=== PATIENT | male | born 1995 | race Caucasian/White ===

== ENCOUNTER 2019-07-17 01:28 | Observation (INO) ==
[2019-07-17 02:06] LABS: Basophils # (auto) 0.02 K/uL (0-0.2); Basophils % (auto) 0.3 %; Eosinophils # (auto) 0.11 K/uL (0-0.5); Eosinophils % (auto) 1.6 %; Hematocrit (blood only) 41.1 % (42-52); Hemoglobin 14.7 g/dL (14.0-18.0); Immature Granulocytes # (auto) 0.01 K/uL (0.00-0.02); Immature Granulocytes % (auto) 0.1 %; Lymphocytes # (auto) 2.34 K/uL (1.2-3.4); Lymphocytes % (auto) 33.2 %; Mean Corpuscular Hgb Conc 35.8 g/dL (32-36); Mean Platelet Volume 9.6 fL (7.4-10.4); Monocytes # (auto) 0.52 K/uL (0.11-0.59); Monocytes % (auto) 7.4 %; Neutrophils # (auto) 4.04 K/uL (1.4-6.5); Neutrophils % (auto) 57.4 %; Platelet Count 143 K/uL (130-400); RDW Coefficient of Variation 12.6 % (11.5-14.5); RDW Standard Deviation 37.9 fL (36.4-46.3); Red Blood Count 4.95 M/uL (4.7-6.1); White Blood Count 7.04 K/uL (4.8-10.8)
[2019-07-17 02:10] LABS: Appearance Urine Cloudy (Clear); Bacteria Urine Automated Negative (Negative); Bilirubin Urine Negative (Negative); Blood Urine Negative (Negative); Cast Urine Automated 0 /lpf (0-5); Color Urine Yellow; Epithelial Cell Urine Auto 0-5 /lpf (0-5); Glucose Urine UA Negative (Negative); Ketones Urine Negative (Negative); Leukocyte Esterase Urine Negative (Negative); Nitrite Urine Negative (Negative); Protein Urine Negative (Negative); RBC Urine Automated 0-4 /hpf (0-4); Urobilinogen Urine Negative (Negative); WBC Urine Automated 0 /hpf (0-5); pH Urine 7.5 (4.5-7.5)
[2019-07-17 02:22] LABS: Albumin Level 4.7 gm/dl (3.4-5.0); BUN Creatinine Ratio 12.7 (10-20); Calcium 8.9 mg/dl (8.5-10.1); Creatinine Clr Calc Pharmacy 103.5 ml/min; Est GFR (African American) 107.5; Est GFR (Non-African American) 92.7; Potassium 3.8 mmol/L (3.5-5.1)
[2019-07-17] MEDS ORDERED: ONDANSETRON INJ 2 MG/ML 2 ML VIAL IV STA ×2 (02:22→03:53)
[2019-07-17] MEDS ORDERED: MoRPHine SULFATE 10 MG/ML CARP/VIAL IV STA (02:22)
[2019-07-17 02:25] LABS: Albumin Globulin Ratio 1.5 (0.9-2); Bilirubin,Total 0.8 mg/dl (0.2-1); Globulin 3.2 gm/dl (2.5-4.0); Total Protein 7.9 gm/dl (6.4-8.2)
[2019-07-17 02:45] LABS: Amphetamines+Metham, Urine Neg (Neg); Barbiturates, Urine Neg (Neg); Benzodiazepine, Urine Neg (Neg); Cocaine, Urine Neg (Neg); MDMA (Ecstacy), Urine Neg (Neg); Methadone, Urine Neg (Neg); Opiate, Urine Neg (Neg); Phencyclidine, Urine Neg (Neg)
[2019-07-17] MEDS ORDERED: IOVERSOL 100ml IV PRN (03:04)
[2019-07-17] MEDS ORDERED: MoRPHine SULFATE 4 MG/ML 1 ML CARP\\VIAL IV STA (03:40)
[2019-07-17] MEDS ORDERED: ACETAMINOPHEN 1,000 MG/100 ML VIAL IV PRN (05:16)
[2019-07-17] MEDS ORDERED: ONDANSETRON INJ 2 MG/ML 2 ML VIAL IV PRN ×2 (05:16→08:14)
[2019-07-17] MEDS ORDERED: DiphenhydrAMINE HCL 50 MG/ML VIAL IV PRN (05:16)
[2019-07-17] MEDS ORDERED: MoRPHine SULFATE 2 MG/ML CARP IV PRN (05:16)
[2019-07-17] MEDS ORDERED: MoRPHine SULFATE 4 MG/ML 1 ML CARP\\VIAL IV PRN ×2 (05:16→11:43)
[2019-07-17] MEDS: LACTATED RINGER'S 1,000 ML IV SCH ×2 (05:44→13:28)
[2019-07-17] MEDS: cefOXitin 2,000 MG in DEXTROSE 5% 50 ML IV SCH ×2 (06:09→12:00)
--- NOTE | 2019-07-17 06:57 | History & Physical Bridge Note ---
Date of Service July 17, 2019 History & Physical Bridge Note I have examined the patient, reviewed the History & Physical and in the interval since the performance of the History & Physical I have noted the following changes of clinical significance: no changes noted
--- NOTE | 2019-07-17 07:09 | Emergency Department Note ---
History of Present Illness General Chief complaint: Abdominal Pain Stated complaint: STOMACH PAIN Time Seen by Provider: 07/17/19 01:56 History of Present Illness Maximum Pain Intensity: 8 This is a 24-year-old male presenting to the emergency department for evaluation of generalized abdominal pain that began around his bellybutton around 9 PM, roughly 4-1/2 hours ago. The patient states that around 11 PM the pain intensified and has now settled in the right lower quadrant. The patient has not had fevers or chills. No chest pain, chest tightness, or shortness of breath. His last meal was around 10 PM, and this did not improve his symptoms. He does not have a history of chronic medical disease or surgery. His discomfort is currently rated an 8/10 Home Medications Home Medications Medication Instructions Recorded Confirmed Type No Known Home Medications 07/17/19 07/17/19 History Allergies Allergy/AdvReac Type Severity Reaction Status Date / Time No Known Allergies Allergy Verified 07/17/19 01:47 Past Med/Surg History Medical History No chronic diseases present No significant past surgical history Social History Preferred Language: Maldivian Communication Ability: Effective Drop Count Associate Required: No Beliefs That Will Affect Care: None Current Living Situation: Other Current Living Situation Comment: 6 roommates Other Information That Helps Us Care for You: No Feels Safe at Home: Yes Safety Concerns: Feels Safe At This Time Smoking Status: Never smoker Hx Alcohol Use: Yes Alcohol type: beer Hx Substance Use: Yes substance use type: marijuana Last Used Substance: Days (ago) Last Used Substance Other:: 07/17/19 Review of Systems A total of 10 systems reviewed and were otherwise negative Physical Exam Vital Signs Vital Signs - 24 hr 07/17/19 01:35 07/17/19 02:46 07/17/19 02:48 Temperature 36.9 C Temperature Source Oral Sepsis Recent Fever Within 48 Hours No Sepsis New/Unexplained Change in Mental Status No Sepsis Action Taken by Nursing No Action Required Pulse Rate 86 67 58 L Pulse Rate from SpO2 Sensor 66 59 L Respiratory Rate 20 19 15 Blood Pressure 151/97 H 133/90 Blood Pressure Mean 115 104 Pulse Oximetry 97 100 100 Oxygen Delivery Method Room Air 07/17/19 03:00 Temperature Temperature Source Sepsis Recent Fever Within 48 Hours Sepsis New/Unexplained Change in Mental Status Sepsis Action Taken by Nursing Pulse Rate 60 Pulse Rate from SpO2 Sensor 59 L Respiratory Rate 18 Blood Pressure Blood Pressure Mean Pulse Oximetry 97 Oxygen Delivery Method VITALS: Vitals are noted on the nurse's note and reviewed by myself. Vital signs stable. GENERAL: Well-developed, well-nourished, white male who appears in significant discomfort. He is guarding his abdomen and pacing in his ER room. HEART: Regular rate and rhythm without murmurs gallops or rubs. LUNGS: Clear to auscultation bilaterally without wheezes, rales or rhonchi. No retractions or accessory muscle use. ABDOMEN: Positive normal bowel sounds x 4. Soft with mild diffuse tenderness, with distinct right lower quadrant tenderness. There is some guarding in this area. No CVA tenderness. MUSCULOSKELETAL: No muscle atrophy, erythema, or edema noted. Full range of motion in all extremities. NEURO: Patient was alert and oriented to person place and time. CN II through XII grossly intact. SKIN: The skin was without rashes, erythema, edema, or bruising. Capillary refill less than 2 seconds. Course Administered Medications Cefoxitin Sodium 2,000 mg/ (Dextrose) 60 mls @ 100 mls/hr IV Q6H [facility] Stop: 07/27/19 05:59 Last Admin: 07/17/19 06:09 Dose: 100 mls/hr Documented by: [id number] Lactated Ringer's (Lr) 1,000 mls @ 125 mls/hr IV .Q8H CARIDAD Stop: 08/16/19 05:15 Last Admin: 07/17/19 05:44 Dose: 125 mls/hr Documented by: [id number] Ondansetron HCl (Zofran) 4 mg IV Q4H PRN PRN Reason: Nausea And Vomiting Stop: 08/16/19 05:15 Last Admin: 07/17/19 06:25 Dose: 4 mg Documented by: [id number] Discontinued Medications Ioversol (Optiray 320 100ml) 100 ml IV ONCE PRN PRN Reason: Interaction Checking Stop: 07/21/19 03:03 Last Admin: 07/17/19 03:05 Dose: 93 ml Documented by: [id number] Morphine Sulfate (Morphine Sulfate) 6 mg IV NOW STA Stop: 07/17/19 02:23 Last Admin: 07/17/19 02:32 Dose: 6 mg Documented by: [id number] Morphine Sulfate (Morphine Sulfate) 4 mg IV NOW STA Stop: 07/17/19 03:41 Last Admin: 07/17/19 03:52 Dose: 4 mg Documented by: [id number] Ondansetron HCl (Zofran) 4 mg IV NOW STA Stop: 07/17/19 02:23 Last Admin: 07/17/19 02:32 Dose: 4 mg Documented by: [id number] Ondansetron HCl (Zofran) 4 mg IV NOW STA Stop: 07/17/19 03:54 Last Admin: 07/17/19 03:56 Dose: 4 mg Documented by: [id number] Medical Decision Making Differential Diagnosis Differential diagnosis: Etiologies such as biliary colic, cholecystitis, hepatitis, pancreatitis, cardiac disease, pancreatitis, gastritis, peptic ulcer disease, appendicitis, cystitis, diverticulitis, mesenteric ischemia, inflammatory bowel disease, ileus, bowel obstruction, testicular/adnexal torsion, aortic pathology, shingles, as well as others were considered Laboratory Data Result diagrams: 07/17/19 01:57 07/17/19 01:57 Lab Results 07/17/19 07/17/19 07/17/19 Range/Units 01:04 01:54 01:57 WBC 7.04 (4.8-10.8) K/uL RBC 4.95 (4.7-6.1) M/uL Hgb 14.7 (14.0-18.0) g/dL Hct 41.1 L (42-52) % MCV 83.0 (80-100) fL MCH 29.7 (25-34) pg MCHC 35.8 (32-36) g/dL RDW Std Deviation 37.9 (36.4-46.3) fL RDW Coeff of Melina 12.6 (11.5-14.5) % Plt Count 143 (130-400) K/uL MPV 9.6 (7.4-10.4) fL Immature Gran % (Auto) 0.1 % Neut % (Auto) 57.4 % Lymph % (Auto) 33.2 % Merrick % (Auto) 7.4 % Eos % (Auto) 1.6 % Baso % (Auto) 0.3 % Immature Gran # (Auto) 0.01 (0.00-0.02) K/uL Neut # (Auto) 4.04 (1.4-6.5) K/uL Lymph # (Auto) 2.34 (1.2-3.4) K/uL Merrick # (Auto) 0.52 (0.11-0.59) K/uL Eos # (Auto) 0.11 (0-0.5) K/uL Baso # (Auto) 0.02 (0-0.2) K/uL Sodium (136-145) mmol/L Potassium (3.5-5.1) mmol/L Chloride (98-107) mmol/L Carbon Dioxide (21-32) mmol/L Anion Gap (3-11) BUN (7-18) mg/dl Creatinine (0.6-1.4) mg/dl Est Cr Clr Drug Dosing ml/min Est GFR ( Amer) Est GFR (Non-Af Amer) BUN/Creatinine Ratio (10-20) Glucose (70-99) mg/dl Calcium (8.5-10.1) mg/dl Total Bilirubin (0.2-1) mg/dl AST (15-37) U/L ALT (12-78) U/L Alkaline Phosphatase (45-117) U/L Total Protein (6.4-8.2) gm/dl Albumin (3.4-5.0) gm/dl Globulin (2.5-4.0) gm/dl Albumin/Globulin Ratio (0.9-2) Lipase (73-393) U/L Urine Color Yellow Urine Appearance Cloudy A (Clear) Urine pH 7.5 (4.5-7.5) Ur Specific [place] 1.010 (1.000-1.030) Urine Protein Negative (Negative) Urine Glucose (UA) Negative (Negative) Urine Ketones Negative (Negative) Urine Blood Negative (Negative) Urine Nitrite Negative (Negative) Urine Bilirubin Negative (Negative) Urine Urobilinogen Negative (Negative) Ur Leukocyte Esterase Negative (Negative) Urine WBC (Auto) 0 (0-5) /hpf Urine RBC (Auto) 0-4 (0-4) /hpf U Hyaline Cast (Auto) 0 (0-5) /lpf U Epithel Cells (Auto) 0-5 (0-5) /lpf Urine Bacteria (Auto) Negative (Negative) Urine Opiates Screen Neg (Neg) Ur Methadone, Qual Neg (Neg) Urine Barbiturates Neg (Neg) Ur Phencyclidine (PCP) Neg (Neg) U Amphetamin/Meth Scrn Neg (Neg) MDMA (Ecstasy) Screen Neg (Neg) U Benzodiazepines Scrn Neg (Neg) Ur Cocaine Metabolite Neg (Neg) U Marijuana (THC) Screen Neg (Neg) 07/17/19 Range/Units 01:57 WBC (4.8-10.8) K/uL RBC (4.7-6.1) M/uL Hgb (14.0-18.0) g/dL Hct (42-52) % MCV (80-100) fL MCH (25-34) pg MCHC (32-36) g/dL RDW Std Deviation (36.4-46.3) fL RDW Coeff of Melina (11.5-14.5) % Plt Count (130-400) K/uL MPV (7.4-10.4) fL Immature Gran % (Auto) % Neut % (Auto) % Lymph % (Auto) % [place] % (Auto) % Eos % (Auto) % Baso % (Auto) % Immature Gran # (Auto) (0.00-0.02) K/uL Neut # (Auto) (1.4-6.5) K/uL Lymph # (Auto) (1.2-3.4) K/uL Merrick # (Auto) (0.11-0.59) K/uL Eos # (Auto) (0-0.5) K/uL Baso # (Auto) (0-0.2) K/uL Sodium 140 (136-145) mmol/L Potassium 3.8 (3.5-5.1) mmol/L Chloride 104 (98-107) mmol/L Carbon Dioxide 31 (21-32) mmol/L Anion Gap 5.0 (3-11) BUN 14 (7-18) mg/dl Creatinine 1.12 (0.6-1.4) mg/dl Est Cr Clr Drug Dosing 103.5 ml/min Est GFR ( Amer) 107.5 Est GFR (Non-Af Amer) 92.7 BUN/Creatinine Ratio 12.7 (10-20) Glucose 106 H (70-99) mg/dl Calcium 8.9 (8.5-10.1) mg/dl Total Bilirubin 0.8 (0.2-1) mg/dl AST 19 (15-37) U/L ALT 24 (12-78) U/L Alkaline Phosphatase 68 (45-117) U/L Total Protein 7.9 (6.4-8.2) gm/dl Albumin 4.7 (3.4-5.0) gm/dl Globulin 3.2 (2.5-4.0) gm/dl Albumin/Globulin Ratio 1.5 (0.9-2) Lipase 83 (73-393) U/L Urine Color Urine Appearance (Clear) Urine pH (4.5-7.5) Ur Specific [place] (1.000-1.030) Urine Protein (Negative) Urine Glucose (UA) (Negative) Urine Ketones (Negative) Urine Blood (Negative) Urine Nitrite (Negative) Urine Bilirubin (Negative) Urine Urobilinogen (Negative) Ur Leukocyte Esterase (Negative) Urine WBC (Auto) (0-5) /hpf Urine RBC (Auto) (0-4) /hpf U Hyaline Cast (Auto) (0-5) /lpf U Epithel Cells (Auto) (0-5) /lpf Urine Bacteria (Auto) (Negative) Urine Opiates Screen (Neg) Ur Methadone, Qual (Neg) Urine Barbiturates (Neg) Ur Phencyclidine (PCP) (Neg) U Amphetamin/Meth Scrn (Neg) MDMA (Ecstasy) Screen (Neg) U Benzodiazepines Scrn (Neg) Ur Cocaine Metabolite (Neg) U Marijuana (THC) Screen (Neg) Imaging Data Radiologist's Impression: Preliminary Findings Only See Final Report For Complete Findings CT ABDOMEN & PELVIS With Contrast: No comparisons The appendix is visualized within the right pelvis. There are 2 intraluminal calcifications, compatible with appendicolith. The appendix is distended up to a maximum of 11 mm. There is minimal periappendiceal fat stranding. In the appropriate clinical setting, these findings would be consistent with early, acute appendicitis. There is no periappendiceal abscess or extraluminal gas Unremarkable small and large bowel. No acute inflammatory process or o bstruction. Trace free fluid within the pelvis. No pelvic abscess. Grade 1 L5-S1 spondylolisthesis with bilateral L5 pars defects. No acute osseous abnormalities MDM Narrative Physical exam and history were performed. Nursing notes, EMR, and Medication List were personally reviewed. Patient appears to have generalized abdominal pain that has settled in the right lower quadrant. The patient appears markedly uncomfortable on my presentation to the room. IV access was established and labs were obtained. The patient was hydrated with normal saline and given 6 mg IV morphine and [address] scan was performed. The patient's blood work is as above and was reviewed. He does not have a significantly elevated white blood cell count, gross anemia, bandemia, or significant electrolyte imbalance. Lipase and transaminases are not diagnostic. Urine is without evidence of infection. It is negative for drugs of abuse. CT scan was reviewed by myself and radiology and shows signs consistent with an acute early appendicitis. I discussed the case with the on-call surgeon, Dr. Le, who will arrange surgical intervention. I did additionally have a lengthy discussion with the patient's mother, and kept her updated throughout her son's stay. The family evidently lives in [place] and will be coming to the [facility] this morning. The patient voiced understanding of his findings and is is comfortable with surgery. Please see Dr. Le dictation for further patient course, plan, and disposition. The chart was completed utilizing [employer] Speech Voice Recognition Software. Grammatical errors, random word insertions, pronoun errors, and incomplete sentences are an occasional consequence of this system due to software limitations, ambient noise, and hardware issues. Any formal questions or concerns about the content, text, or information contained within the body of this dictation should be directly addressed to the provider for clarification. . Impression & Plan Acute appendicitis Discharge Plan Visit Data *Final* Discharge Date/Time: 07/17/19 05:05 Chief Complaint: Abdominal Pain Stated Complaint: STOMACH PAIN ED Provider: Starr Li ED Midlevel Provider: Jackson Ramachandran Discharge Problem: Acute appendicitis Patient Disposition: Admitted As Inpatient Discharge Instructions Interventions: ED Discharge Assessment Last Done: 07/17/19 05:05
--- NOTE | 2019-07-17 07:39 | Surgery Consultation ---
Date of Consultation July 17, 2019 Assessment & Plan (1) Acute appendicitis: This is a 24yM with no PMH who presents to the [facility] with complaints of abdominal pain and CT scan findings concerning for early acute appendicitis. Patient will be admitted under general surgery. Will keep NPO with IVF, IV abx, and prn pain medication. Will book patient for the OR today for laparoscopic appendectomy with Dr. Le. Supervising Physician Co-Signing Physician Notes Patient seen and examined, labs and imaging reviewed, agree with above. 24-year-old male with periumbilical pain that migrated to the right lower dorcas drant yesterday. Afebrile, vital signs stable, normal white count. On exam he is tender to palpation with guarding in the right lower quadrant at McBurney's point. CT scan shows a dilated appendix. Acute appendicitis Plan for laparoscopic appendectomy The risks the procedure were discussed to include but not limited to bleeding, infection, open surgery, damage to surrounding structures, need for future or more extensive surgery, normal appendix, abscess, and the risk of anesthesia Plan of care discussed the patient, all questions were answered, the patient expressed understanding agrees the plan of care as stated History of Present Illness Attending Physician: Cristóbal Le, DO, FACS History of Present Illness This is a 24yM with no significant PMH who presented to the [facility] ED in the early AM of 07/17/19 with severe abdominal pain. Patient states that his pain started around 9pm last evening that progressively worsened throughout the night prompting him to be evaluated in the ED. The pain was at first generalized in his central abdomen that migrated to the right lower quadrant. He tried to eat around 10pm thinking he was hungry after soccer practice, but that did not help his pain. He endorses vomiting once this morning around 6am, but otherwise d enies nausea. He denies fevers/chills, diarrhea or change in bowel habits, chest pain, shortness of breath, or abdominal bloating. In the ED workup included a CT scan of the abdomen that revealed a dilated appendix to 11mm, minimal periappendiceal fat stranding, concerning for early acute appendicitis. WBC 7.4 and patient afebrile. Allergies Allergy/AdvReac Type Severity Reaction Status Date / Time No Known Allergies Allergy Verified 07/17/19 01:47 Home Medications Home Medications Medication Instructions Recorded Confirmed Type No Known Home Medications 07/17/19 07/17/19 History Patient History Medical History No chronic diseases present No significant past surgical history Social History Preferred Language: Thai Communication Ability: Effective Engineering Aide Required: No Beliefs That Will Affect Care: None Current Living Situation: Other Current Living Situation Comment: 6 roommates Other Information That Helps Us Care for You: No Feels Safe at Home: Yes Safety Concerns: Feels Safe At This Time Smoking Status: Never smoker Hx Alcohol Use: Yes Alcohol type: beer Hx Substance Use: Yes substance use type: marijuana Last Used Substance: Days (ago) Last Used Substance Other:: 07/17/19 Review of Systems Constitutional: no fever and no chills Cardiovascular: no chest pain Gastrointestinal: + abdominal pain (right lower quadrant) and + vomiting (x1); no bloating, no nausea and no change in bowel habits Genitourinary: no dysuria Physical Exam Physical Exam: awake/alert Constitutional: well developed and well nourished; no acute distress Respiratory: normal respiratory effort; no respiratory distress Cardiovascular: Rate/Rhythm: regular rate Gastrointestinal (Abdomen): Inspection/Auscultation: abdomen normal to inspection and + abdomen distended (minimally) Percussion/Palpation: + abdomen tender (to deep palpation in RLQ) and abdomen soft Results & Data Vital Signs (Past 12 Hours) Vital Signs Temp Pulse Pulse Resp BP BP Pulse Ox 07/17/19 05:19 36.9 C 68 18 147/71 H 100 07/17/19 05:05 62 19 133/90 96 07/17/19 03:00 60 18 97 07/17/19 02:48 58 L 15 100 07/17/19 02:46 67 19 133/90 100 07/17/19 01:35 36.9 C 86 20 151/[address] abdomen Pelvis (07/17/19): Night hawk read The appendix is visualized within the pelvis. There are 2 intraluminal calcifications, compatible with appendicolith. The appendix is distended up to a maximum of 11mm. There is minimal periappendiceal fat stranding. In the appropriate clinical setting, these findings would be consistent with early, acute appendicitis. There is no periappendiceal abscess or . Unremarkable small and large bowel. No acute inflammatory process or obstruction. Trace free fluid within the pelvis. No pelvic abscess. Grade 1 L5-S1 spondylolithesis with bilateral L5 pars defects. No acute osseous abnormalities. Read by: Bigg Valadez MD PG Care Time/CCT Total # of Minutes Spent Total Time Spent with Patient: Total time spent is greater than 50% in coordination of care (as documented) at patient's floor/unit and/or counseling patient: (1) Acute appendicitis Appendicitis abscess presence: without abscess Appendicitis gangrene presence: without gangrene Appendicitis perforation presence: without perforation
--- NOTE | 2019-07-17 07:56 | CT Scan Report ---
CT SCAN OF THE ABDOMEN AND PELVIS WITH IV CONTRAST CLINICAL HISTORY: Generalized abdominal pain. Nausea. COMPARISON STUDY: No priors. TECHNIQUE: Following the IV administration of 93 cc of Optiray 320, CT scan of the abdomen and pelvi s is performed from the lung bases to the proximal femora. Images are reviewed in the axial, sagittal , and coronal planes. IV contrast was administered without complication. A dose lowering technique wa s utilized adhering to the principles of ALARA. CT DOSE: 296.01 mGy.cm FINDINGS: Lung bases: The heart is normal in size and without pericardial effusion. The lung bases are clear. Liver: The contrast-enhanced liver is normal in size, contour, and attenuation. There is no intrahepa tic biliary ductal dilatation. The hepatic veins and portal veins are patent. Gallbladder: Unremarkable. Spleen: Normal in size and attenuation. Pancreas: Unremarkable. Adrenal glands: Unremarkable. Kidneys: The contrast enhanced kidneys are normal in size and without hydronephrosis. The kidneys enh ance symmetrically. Abdominal vasculature: The abdominal aorta is normal in course and caliber. Bowel: There is no bowel obstruction. The appendix is distended and fluid-filled measuring up to 10 mm in diameter. There are numerous calcified appendicoliths identified, as well as faint periappendic eal stranding. Findings are highly concerning for acute appendicitis. There is no evidence of abscess . Peritoneum: There is no intraperitoneal free air or abdominal ascites. There is a small fat-containin g umbilical hernia. Lymphadenopathy: None. Pelvic viscera: The bladder, prostate, and seminal vesicles are normal as imaged. Skeletal structures: There are bilateral pars defects at L5 with mild disc space narrowing at L5-S1. No anterolisthesis is seen. No lytic or blastic lesions are seen. IMPRESSION: Findings consistent with mild acute appendicitis. There is no evidence of abscess or perf oration. Electronically signed by: Saul Arnold M.D. 07/17/2019 7:23 AM
--- NOTE | 2019-07-17 08:04 | Anesthesiology Consultation ---
Date of Service July 17, 2019 Assessment & Plan (1) Encounter for pre-operative examination: Chart Review Chart Review: Acceptable Risk for Surgery and Patient NOT seen in Pre Admission Testing Consults Requested none History Surgery Operation Date: 07/17/19 09:50 Proposed Procedures p Laparoscopic Appendectomy - Cristóbal Le DO, FACS Height/Weight Height: 5 ft 9 in Weight: 70.5 kg Allergies Allergy/AdvReac Type Severity Reaction Status Date / Time No Known Allergies Allergy Verified 07/17/19 01:47 Medications Home Medications Medication Instructions Recorded Confirmed Last Taken No Known Home Medications 07/17/19 07/17/19 Unknown Active Medications Generic Name Dose Route Start Last Admin Trade Name Freq PRN Reason Stop Dose Admin Cefoxitin Sodium 2,000 mg/ 60 mls @ 100 mls/hr 07/17/19 06:00 07/17/19 06:48 Dextrose IV 07/27/19 05:59 Infused Q6H CARIDAD Infusion Lactated Ringer's 1,000 mls @ 125 mls/hr 07/17/19 05:16 07/17/19 05:44 Lr IV 08/16/19 05:15 125 mls/hr .Q8H CARIDAD Administration Ondansetron HCl 4 mg 07/17/19 05:16 07/17/19 06:25 Zofran IV 08/16/19 05:15 4 mg Q4H PRN Administration Nausea And Vomiting NPO Date Last Intake of Fluids: 07/16/19 Time Last Intake of Fluids: 22:00 Past Medical History Medical History No chronic diseases present No significant past surgical history Social History Smoking Status: Never smoker Hx Alcohol Use: Yes Alcohol type: beer alcohol intake frequency: a few times a week Alcohol Intake Frequency Comment: 15 beers on weekends Hx Substance Use: Yes substance use type: marijuana Last Used Substance: Days (ago) Last Used Substance Other:: 07/17/19 Physical Exam Vital Signs Last Vital Signs Temp 37.0 C 07/17/19 07:35 Pulse 73 07/17/19 07:35 Resp 17 07/17/19 07:35 BP 121/71 07/17/19 07:35 Pulse Ox 99 07/17/19 07:35 Testing Laboratory Results 07/17/19 01:57 07/17/19 01:57 Urine Color Yellow 07/17/19 01:04 Urine Appearance Cloudy (Clear) A 07/17/19 01:04 Urine pH 7.5 (4.5-7.5) 07/17/19 01:04 Ur Specific [place] 1.010 (1.000-1.030) 07/17/19 01:04 Urine Protein Negative (Negative) 07/17/19 01:04 Urine Glucose (UA) Negative (Negative) 07/17/19 01:04 Urine Ketones Negative (Negative) 07/17/19 01:04 Urine Nitrite Negative (Negative) 07/17/19 01:04 Ur Leukocyte Esterase Negative (Negative) 07/17/19 01:04 Urine WBC (Auto) 0 /hpf (0-5) 07/17/19 01:04 Urine RBC (Auto) 0-4 /hpf (0-4) 07/17/19 01:04 U Hyaline Cast (Auto) 0 /lpf (0-5) 07/17/19 01:04 U Epithel Cells (Auto) 0-5 /lpf (0-5) 07/17/19 01:04 Urine Bacteria (Auto) Negative (Negative) 07/17/19 01:04
[2019-07-17] MEDS ORDERED: LIDOCAINE HCL 2% 2 ML VIAL/AMP(20MG/ML) INFIL ONE (08:09)
[2019-07-17] MEDS ORDERED: PROPOFOL IV EMULSION 10 MG/ML 20 ML VIAL IV ONE (08:10)
[2019-07-17] MEDS ORDERED: DEXAMETHASONE SOD INJ 4 MG/ML VIAL ONE ×2 (08:10→09:36)
[2019-07-17] MEDS ORDERED: fentaNYL citrate 100 MCG/2 ML VIAL ONE ×2 (08:10→09:37)
[2019-07-17] MEDS ORDERED: ONDANSETRON INJ 2 MG/ML 2 ML VIAL ONE ×2 (08:10→09:36)
[2019-07-17] MEDS ORDERED: MIDAZOLAM HCL 1 MG/ML 2ML VIAL ONE (08:10)
[2019-07-17] MEDS ORDERED: ePHEDrine sulfate 50 MG/ML AMP IV PRN (08:14)
[2019-07-17] MEDS ORDERED: NALOXONE HCL 0.4 MG/1 ML VIAL/CARP IV PRN (08:14)
[2019-07-17] MEDS ORDERED: PROMETHAZINE HCL 12.5 MG in SODIUM CHLORIDE 0.9% 50 ML IV PRN (08:14)
[2019-07-17] MEDS ORDERED: FLUMAZENIL 0.1 MG/1 ML 10 ML VIAL IV PRN (08:14)
[2019-07-17] MEDS ORDERED: HYDROmorphone INJ 1 MG/ML SYRINGE IV PRN (08:14)
[2019-07-17] MEDS ORDERED: ATROPINE SULFATE 0.1 MG/ML 10ML SYR IV PRN (08:14)
[2019-07-17] MEDS ORDERED: ROCURONIUM BROMIDE 10 MG/ML 5 ML VIAL ONE (08:42)
[2019-07-17] MEDS ORDERED: BUPIVACAINE 0.5 % 5 MG/1 ML MPF 30ML VIAL ONE (09:31)
--- NOTE | 2019-07-17 10:30 | Operative Report ---
Post Operative Report Pre & Post Diagnosis Operation Date: 07/17/19 09:50 Pre-Op Diagnosis: APPENDICITIS Post-Op Diagnosis: APPENDICITIS Procedure Operation Date: 07/17/19 09:50 Actual Procedures p Laparoscopic Appendectomy(Not Applicable) - Cristóbal Le DO, MARK ANTHONY Surgeon Cristóbal Le DO, MARK ANTHONY Manufacturing Electrician Hellen Cantu Estimated Blood Loss 3 Findings Consistent with Post-Op Diagnosis Acute, nonperforated appendicitis Specimens Appendix Anesthesia Type General Complications none Disposition Accompanied Patient To Recovery: No Disposition: Recovery Room Indications 24-year-old male presented to the emergency department with periumbilical pain that migrated to his right lower quadrant. History, physical exam, and imaging studies were consistent with acute appendicitis. Plan for laparoscopic appendectomy. The risks of the procedure were discussed, all questions were answered, and the patient agreed to proceed with surgery as planned. Description of Procedure The patient was properly identified, consented, and taken to the operating room where he was placed in the supine position. General endotracheal anesthesia was induced. SCDs and a safety belt were placed. Preoperative antibiotics were administered. A Santana catheter was placed. The patient's abdomen was prepped and draped in the standard sterile fashion. Surgical timeout was performed and all parties were in agreement that this was the correct patient and procedure to be performed and we continued as planned. A curvilinear infraumbilical incision was made with electrocautery and deepened down to the fascia with blunt dissection. The base of the umbilicus was grasped with a Jose and elevated towards the ceiling. An incision was made in the midline fascia with a knife and entry into the peritoneum was confirmed. Stay suture of 0 Vicryl was placed and a Cole trocar was inserted. The abdomen was insufflated with carbon dioxide which the patient tolerated without incident. The laparoscope was inserted and no damage from initial trocar placement was noted, no gross abnormalities were noted within the 4 quadrants the abdomen. 5 mm ports were then placed in the left lower quadrant with care not to damage the epigastric vessels, and in the suprapubic midline with care not to damage the bladder. The patient was placed in Trendelenburg position and rotated towards the left. The small bowel was swept away from the right lower quadrant. The cecum was grasped with an atraumatic grasper exposing the appendix. The appendix was mildly inflamed and there was no evidence of perforation. There was a small amount of turbid fluid in the pelvis. A window was created between the base of the appendix and the mesoappendix. A jameson loaded endoscopic stapler was then used to divide the appendix at its base. A jameson load was then used to divide the mesoappendix. Hemostasis was good. The appendix was placed in an Endo Catch bag and removed through the umbilical port site. The right lower quadrant and pelvis was irrigated and hemostasis was found to be good. 5 mm trochars were removed under direct visualization and the abdomen was allowed to collapse. The umbilical port site fascia was closed with 0 Vicryl suture. The wound was irrigated, and the skin of all ports was closed with 4-0 Monocryl subcuticular sutures. Dermabond was placed over the wounds. The patient was extubated in the operating room and taken to the PACU where he recovered without apparent incident. All sponge, instrument and needle counts were correct at the conclusion of the procedure. The patient tolerated the procedure well. The physician's mortgage assistant was present and scrubbed for the entire to the case. She was critical in positioning the patient, prepping and draping, driving the laparoscope, retraction exposure, closure the incisions, and placement of the dressings. I attest to the content of the Intraoperative Record and any orders documented therein. Any exceptions are noted below.
--- NOTE | 2019-07-17 11:10 | Anesthesiology Progress Note ---
Date of Service July 17, 2019 Anesthesia Post Procedure Vital Signs Vital Signs: Temp Pulse Pulse Pulse Resp BP BP 07/17/19 11:05 36.8 C 68 15 122/63 07/17/19 10:55 36.8 C 55 L 18 110/52 L 07/17/19 10:45 36.8 C 60 17 117/59 L 07/17/19 08:13 37.2 C 76 20 124/65 07/17/19 07:35 37.0 C 73 17 121/71 07/17/19 05:19 36.9 C 68 18 147/71 H 07/17/19 05:05 62 19 133/90 07/17/19 03:00 60 18 07/17/19 02:48 58 L 15 07/17/19 02:46 67 19 133/90 07/17/19 01:35 36.9 C 86 20 151/97 H Pulse Ox 07/17/19 11:05 97 07/17/19 10:55 97 07/17/19 10:45 96 07/17/19 08:13 99 07/17/19 07:35 99 07/17/19 05:19 100 07/17/19 05:05 96 07/17/19 03:00 97 07/17/19 02:48 100 07/17/19 02:46 100 07/17/19 01:35 97 Pain Intensity Abdomen: Pain Intensity: 3 Transfer of Care Handoff Completed per policy Notes Mental Status: alert / awake / arousable Patient Amnestic to Procedure: Yes Nausea / Vomiting: adequately controlled Pain: adequately controlled Airway Patency, RR, SpO2: stable & adequate BP & HR: stable & adequate Hydration State: stable & adequate Anesthetic Complications: no major complications apparent
[2019-07-17] MEDS ORDERED: OXYCODONE/ACETAMINOPHEN 5mg/325mg TAB PO PRN ×2 (11:43)
--- NOTE | 2019-07-18 16:43 | Discharge Summary ---
Date of Service July 18, 2019 Principal Diagnosis Acute appendicitis Discharge Exam awake/alert. visiting with mother at bedside Constitutional well developed, well nourished, cooperative and comfortable; no acute distress Respiratory normal respiratory effort Gastrointestinal (Abdomen) Inspection/Auscultation: + abdominal surgical incision (c/d/i with dermabond over incisions) Percussion/Palpation: abdomen soft; abdomen nontender Discharge Data Allergies Allergy/AdvReac Type Severity Reaction Status Date / Time No Known Allergies Allergy Verified 07/17/19 01:47 Consultations 07/17/19 03:55 Consult General Surgery Stat 07/17/19 04:46 ED Decision to Admit Stat Procedures Performed Operation Date: 07/17/19 09:50 Actual Procedures p Laparoscopic Appendectomy(Not Applicable) - Cristóbal Le, DO, FACS Ordered Studies 07/17/19 02:22 CT abd pelvis IV con only Urgent Hospital Course (1) Acute appendicitis: This is a 24yM with no significant PMH who presented to the [facility] ED on 07/17/19 with complaints of abdominal pain and CT scan findings concerning for early acute appendicitis. On arrival patient's WBC: 7, VSS, and patient afebrile. He was admitted under general surgery and was made NPO with IVF, IV abx, and prn pain medication. The patient was subsequently taken to the OR for a laparoscopic appendectomy with Dr. Le. The patient tolerated the procedure well, see operative report for full details. Post operatively the patient's diet was advanced from clear liquids to regular without issues. His pain was well controlled. Patient endorsed Tylenol would be sufficient enough for him at home. His surgical wounds were clean and intact, covered with dermabond. He progressed well post operatively. On the evening of 07/17 the patient was deemed stable for discharge to home with instructions to follow up with Dr. Le within 1-2 weeks in clinic. Total Time Total Time Spent Total Time Spent (In Minutes): 15 Discharge Plan Discharge Items Patient Disposition: Home - Self-Care Reason For Visit: APPENDICITIS Discharge Diagnosis: laparoscopic appendectomy Activity: Per Instructions section Lifting: No more than 10 pounds Bathing Comment: you may shower starting tomorrow Exercise/Sports: Wait until after follow-up appointment Exercise Comment: light activity for at least 3 weeks Driving/Machine Use: Resume 3 days after discharge Non-emergency contact: Surgeon Call non-emergency contact if: you have any medication questions, your symptoms worsen, your pain is worsening, you have a fever, your temperature is above 101.5, your wound has increased redness, your wound has increased drainage and your wound pain has increased Follow-up/Referrals: Cristóbal Le, MARK ANTHONY ANDRE [Physician] - (Please call to schedule follow up in clinic within 2 weeks. You may call the office sooner if you have any questions/concerns.) [facility] [Primary Care Provider] - Diet: Regular Addtl Attending Provider Instructions: You may take Tylenol and Ibuprofen over the counter if needed for pain. Pending Studies at Discharge: No Stand-Alone Forms: [facility] [employer] Medications and DC Order Prescriptions: No Action No Known Home Medications RF: 0 Discharge Orders: Discharge Order (Routine); Ordered 07/17/19 Ordered By: Hellen Kerr/Other Patient Handouts: Appendectomy Laparoscopic Dc Admission Data Admit Date/Time: 07/17/19 04:08 Attending Provider: Cristóbal Le Admit Provider: Cristóbal Le Primary Care Provider: [facility] Other Providers: Cristóbal eL Other Interventions: Discharge Summary Assessment (RN) Last Done: 07/17/19 16:01 DC Date/Time DO NOT enter until pt leaves facility: 07/17/19 16:56
== END 2019-07-17 16:56 | disposition home or self-care (01) ==
LOC: 3N 01:28 → ED 01:28 → 3N 05:05
DX: K35.80 Unspecified acute appendicitis